=== PATIENT | female | born 1935 | race Caucasian/White ===

== ENCOUNTER 2016-08-11 08:13 | Inpatient (IN) | payer MEDICARE, OTHER ==
[~2016-08-11] VITALS: Ht 170.2 cm; Wt 68.1 kg
--- NOTE | ~2016-08-11 | ECH ---
Transesophageal Echocardiography Report (ESTHER) Demographics Patient Name RICCO ZHU Date of Study 08/12/2016 Patient Number [id number] Visit Number [id number] Date of 1935 Room Number 401 Accession Number [id number] Gender Female Age 80 year(s) Referring Laxmi HERNANDEZ Employee Health Rn Silva Lala Physician Frank Gupta MD Physician Interpreting Laxmi HERNANDEZ Waste Water Worker Physician Frank Supervising Ordering Physician Laxmi HERNANDEZ MD/GAIL Marie Nurse Stress News Library Director Conclusions Contractility Score Summary Normal Left Ventricular contractility was noted. Summary Informed consent obtained. Transesophageal echocardiogram was done under moderate sedation . The estimated left ventricular ejection fraction is 55-60%. There is no thrombus in the left atrial appendage. Bubble study was done, there is no evidence for a PFO or ASD. Mild mitral regurgitation by color Doppler. Trivial tricuspid regurgitation by color Doppler. Mild atherosclerosis noted. Recommendation The patient was given the results of the exam during their hospital stay. Procedure Type of Study ESTHER procedure Procedure Date Date: 08/12/2016 Start: 09:50 AM Technical Quality: Adequate visualization Indications:Atrial fibrillation. Appropriate Use Criteria: 9 Height: 67 inches Weight: 150 pounds BSA: 1.79 m Rhythm: Atrial fibrillation HR: 145 bpm BP: 111/57 mmHg O2 Saturation: 92 % ESTHER Performed By: Frank Hair MD Type of Anesthesia: Moderate sedation Findings Left Ventricle Normal interventricular septum. Left Atrium There is no thrombus in the left atrial appendage. Informed consent was obtained, bubble study was done, there is no evidence for a PFO or ASD. Mitral Valve Normal mitral valve structure and function. Mild mitral regurgitation by color Doppler. Aortic Valve The aortic valve is mildly sclerotic. Tricuspid Valve Normal tricuspid valve structure and function. Trivial tricuspid regurgitation by color Doppler. Pulmonic Valve Normal pulmonic valve structure and function. Miscellaneous Mild atherosclerosis noted. Contractility Score LV regional wall motion:(0-Non visualized 1-Normal 2-Hypokinesis 3-Akinesis 4-Dyskinesis 5-Aneurysm) Signature
--- NOTE | 2016-08-13 12:41 | CVR ---
ADMIT: 08/11/2016 RM/LOC: 401 [facility] MR#: [id number] [address] [address] YAMILA ZHU [address] [place] [address] Cardioversion Report SEX: F AGE: 80 : 1935 DATE: 08/12/2016 INDICATION: Yamila is a pleasant 80-year-old female, who presented with atrial fibrillation with rapid ventricular response. This was her 1st episode, and given her symptoms we discussed risks and benefits, and she decided to proceed with ESTHER cardioversion. PROCEDURE PERFORMED: 1. Direct current cardioversion. 2. Transesophageal echo reported separately. PROCEDURE IN DETAIL: After the ESTHER was completed, the patient was already sedated with propofol from Anesthesia. She received a single 120 joule biphasic synchronized shock converting her from atrial fib to a normal sinus rhythm. She tolerated the procedure well and there were no complications. SUMMARY: Successful cardioversion from atrial fib to normal sinus rhythm. Frank Hair MD/ fozia JOB #: [id number] CC: Mihir Dumont, Attending Physician Mihir Dumont, Family Physician
[2016-08-17] MEDS ORDERED: FENOFIBRIC ACI135 MG PO (06:42)
[2016-08-17] MEDS ORDERED: VALIUM-DPS5 MG PO (06:42)
[2016-08-17] MEDS ORDERED: SYNTHROID DPS0.1 MG PO (06:43)
[2016-08-17] MEDS ORDERED: LOPRESSOR DPS12.5 MG PO (06:43)
[2016-08-17] MEDS ORDERED: LASIX DPS40 MG PO (06:43)
[2016-08-17] MEDS ORDERED: TYLENOL325 MG PO (06:44)
[2016-08-17] MEDS ORDERED: SPIRONOLACTONE25 MG PO (06:44)
[2016-08-17] MEDS ORDERED: ASA CHILDREN'S81 MG PO (06:44)
[2016-08-17] MEDS ORDERED: CORDARONE DPS200 MG PO ×2 (06:45→06:50)
[2016-08-17] MEDS ORDERED: B-12 INJ1000 MCG/M PO (06:46)
[2016-08-17] MEDS ORDERED: GLYBURIDE5 MG PO ×2 (06:46→06:47)
[2016-08-17] MEDS ORDERED: DULERA 200/58.8 GM IH (06:47)
[2016-08-17] MEDS ORDERED: JANUVIA50 MG PO (06:47)
[2016-08-17] MEDS ORDERED: SURFAK DPS240 MG PO (06:48)
[2016-08-17] MEDS ORDERED: MAALOX DPS30 ML PO (06:48)
[2016-08-17] MEDS ORDERED: ELIQUIS2.5 MG PO (06:49)
--- NOTE | 2016-08-21 12:04 | HP ---
ADMIT: 08/11/2016 RM/LOC: 401 [facility] MR#: [id number] [id number] [place], [place] [address] YAMILA ZHU [address] [place] [address] History and Physical SEX: F AGE: 80 : 1935 DATE OF SERVICE: CHIEF COMPLAINT: Chest pain. HISTORY OF PRESENT ILLNESS: Yamila is an 80-year-old white female, well known to myself, admitted to [facility] through the ER with chest pain, rule out AK evaluation. States she woke up this morning and had some epigastric pain that radiates through to her back, just like with her prior heart attack years ago. She subsequently activated EMS, was taken to the ER. Initial EKGs and enzymes show no evidence of acute AK but she did indeed have new onset atrial fibrillation with rapid ventricular response, which responded nicely to IV beta-travis for rate control. I was subsequently contacted for admission for further evaluation and management, given her history of known coronary artery disease, diabetes, hypertension, etc. Yamila states at this point in time, her pain is gone. She denies it was ever chest pain, states it was all in her upper abdomen, went straight through to her back to slide with her prior heart attack. 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 She denies any current chest pain, shortness of breath, nausea, or vomiting. PAST MEDICAL HISTORY: Well documented in charts and includes numerous prior surgeries including bypass surgery, hysterectomy, cholecystectomy, melanoma excision. Illnesses include coronary artery disease, status post AK x2 with her last stent being in 2005. Additionally, she has hypertension, diabetes mellitus type 2, hyperlipidemia, hypertriglyceridemia, hypothyroidism secondary to thyroid ablation, hypothyroidism, prior melanoma excision, prior low back spine surgery along with history of chronic anxiety disorder, diverticulosis, osteoarthritis, peptic ulcer disease, and prior hemorrhoidectomies. MEDICATIONS: Yet to be confirmed and include: 1. Aspirin enteric coated 81 mg daily. 2. Valium 5 mg t.i.d. p.r.n. anxiety. 3. Fenofibrate 135 mg once daily. 4. Lasix 40 mg every morning. 5. Metformin 500. 6. Glyburide 5 two in the morning and one at night. 7. Levothyroxine 100 mcg daily. 8. Metoprolol tartrate 50 mg b.i.d. 9. Pravastatin 40 mg at bedtime. 10.Ramipril 10 mg b.i.d. ALLERGIES: TO PENICILLIN. SOCIAL HISTORY: An 80-year-old white female. She lives in [place]. She is a prior smoker, quit around 2005. She does not drink alcohol. FAMILY HISTORY: Heart disease. No history of anesthetic complications, ADMIT: 08/11/2016 RM/LOC: 401 [facility] MR#: [id number] [address] [place] [id number] YAMILA ZHU [address] [place] [address] History and Physical SEX: F AGE: 80 : 1935 noted. Remainder of family history is unremarkable. REVIEW OF SYSTEMS: Remarkable for some chronic back pain and leg weakness with the use of wheeled walker. She has known coronary artery disease and chest pain and chronic anxiety which is reasonably well controlled on her current medications. Remainder of review of systems is negative. PHYSICAL EXAMINATION: VITAL SIGNS: She is alert and oriented, in no acute distress. Her biggest concern is she has not had breakfast or lunch. GENERAL: Exam shows her to be alert. HEENT: Pupils reactive. Extraocular muscles are intact. TMs normal. Throat is unremarkable. HEART: Borderline tachycardic. LUNGS: Clear. ABDOMEN: Soft, nontender, and benign. BREASTS: Deferred. : Deferred. RECTAL: Deferred. EXTREMITIES: Reveal no clubbing, cyanosis, or edema. NEUROLOGIC: Grossly normal including light touch, strength, and DTRs, although she has diminished strength in her legs. LABORATORY DATA: Include sodium of 140, potassium 3.9, BUN of 34, creatinine 1.8 with glucose of 186. Initial cardiac enzymes including CPK, MB, and troponin I are normal. TSH is 0.81. White count is 6.6, hemoglobin 10.7, platelet count 339,000. Chest x-ray done in the ER shows no acute changes per preliminary report. Some mild cardiomegaly was noted. EKG done in the ER shows atrial fibrillation with rapid ventricular response with current rate control. Tele monitors and vitals are currently being utilized via 4 personnel during cardiology conversations. ASSESSMENT: 1. Chest pain, rule out myocardial infarction with known coronary artery disease. ADMIT: 08/11/2016 RM/LOC: 401 [facility] MR#: [id number] [address] [place] [id number] YAMILA ZHU [address] [place] [address] History and Physical SEX: F AGE: 80 : 1935 2. New onset atrial fibrillation with rapid ventricular response with current rate control following fluids and IV beta travis. Other problems include chronic kidney disease versus prerenal azotemia with elevated creatinine. Anemia with hemoglobin of 10.7. Other problems include diabetes mellitus type 2, hypothyroidism, COPD, hyperlipidemia hypertension, lumbosacral spine disease. PLAN: Routine labs have been ordered. Serial cardiac enzymes and fasting lipids were ordered. Cardiology has been consulted. For rate control, we will initiate IV heparin, given her new onset atrial fibrillation, proceed with further evaluation and management based on course during hospitalization. Please see her hospital record for the details. Mihir Dumont MD/ wilmar JOB #: [id number] CC: Mihir Dumont, Attending Physician Mihir Dumont, Family Physician
--- NOTE | 2016-08-23 11:23 | CO ---
ADMIT: 08/11/2016 RM/LOC: 401 [facility] MR#: [id number] [address] [place], [place] [address] YAMILA ZHU [address] [place], [place] [address] Consultation SEX: F AGE: 80 : 1935 DATE OF CONSULTATION: 08/11/2016 ATTENDING PHYSICIAN: Mihir Dumont CONSULTING PHYSICIAN: Segun Laughlin MD REASON FOR CONSULT: Chest pain and newly diagnosed atrial fibrillation. HISTORY OF PRESENT ILLNESS: Yamila is a very nice, 80-year-old lady with known coronary disease. She had an anterior myocardial infarction in 2005, treated with percutaneous coronary intervention, but I am not sure what kind of stent she received. Her LV function has been preserved. She did have an episode of possible diastolic heart failure in 2012. She is diabetic with COPD and history of hypothyroidism and hypertension. She says for the past 6 months and steadily becoming more progressive she has had episodes of waking up in the morning, slightly diaphoretic, feeling weak, and she said the best way to describe it as feeling like her blood sugar was low. This has been getting worse over time, and she usually gets up and has a bite to eat and then is able to go back to bed. However this morning, she had a similar episode. She said she got up and had a couple grapes and a small cookie. It was about 6:30 in the morning. She then began having a dull abdominal pain radiating into her back. She described it as moderate in intensity and described it like a "gallbladder attack." She was lightheaded and weak, but she did not pass out. She went to her front door and unlocked it in case the emergency medical crew would have to go in. She sat down in her recliner. She continued to feel poorly, so she called the EMS. She was brought to the emergency room. She was found to be in atrial fibrillation with rapid ventricular response. Her initial troponin is minimally elevated and slowly her pain resolved. She also has been feeling some palpitations over the past few weeks, but this is not one of her main symptoms. She denies any anginal-type symptoms at least chest pain in her chest. Most of her pain today in her upper abdomen. On presentation, she was in rapid ventricular response with a heart rate 120 to 140. PAST MEDICAL HISTORY: ALLERGIES: Penicillin. HOME MEDICATIONS: Include: 1. Diazepam 5 mg 3 times a day as needed. 2. Lasix 40 every morning. 3. Fenofibric acid 135 daily. 4. Glyburide/metformin 5/500 two tabs every morning and one tab in the evening. 5. Levothyroxine 100 mcg daily. 6. Metoprolol 50 b.i.d. 7. Ramipril 10 twice daily. 8. Spironolactone 25 daily. 9. Aspirin 81 daily. 10.Tylenol 325 as needed. ADMIT: 08/11/2016 RM/LOC: 401 [facility] MR#: [id number] [address] [address] YAMILA ZHU [address] [place] [address] Consultation SEX: F AGE: 80 : 1935 ILLNESSES: Include: 1. Coronary disease after having an anterior myocardial infarction in 2005, treated with percutaneous coronary intervention. 2. History of heart failure with preserved ejection fraction. 3. Dyslipidemia. 4. Type 2 diabetes. 5. Severe COPD. 6. Hypothyroidism. 7. Hypertension. PAST SURGICAL HISTORY: Includes cataract removal, hysterectomy, cholecystectomy, and benign left breast biopsy. She had melanoma on her back when she was in her 30s and skin graft, and she has had hemorrhoid surgery. FAMILY HISTORY: Positive for premature coronary disease with her father having an HI at age 61. Her mom had an HI at age 68 and 2 other brothers who either had bypass surgery or HI. She has 1 brother and 2 sisters with diabetes. No significant family history of cancer or stroke. SOCIAL HISTORY: She quit smoking in 2005. She has been for quite a few years. She has 2 sons. 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 She tries to follow a low sugar diet. She drinks coffee daily. No alcohol or illicit drug use. REVIEW OF SYSTEMS: GENERAL: Denies fatigue, fever, chills, sweats, rash, or weight loss. EYES: Positive for blurry vision, partial vision loss, wears glasses and positive for cataracts. Denies double vision or glaucoma. ENT: Denies hearing loss or problems with nose, mouth or throat. PULMONARY: Positive for history of emphysema, and she wakes more than once a night. Denies cough, sputum production, asthma, or bronchitis. Denies snoring loudly or fatigue upon awakening. GASTROINTESTINAL: Positive for distant history of a stomach ulcer, and she has had a prior cholecystectomy. Denies heartburn or difficulty swallowing. No change in bowel habits. Denies dark or bloody stools. No history of hiatal hernia or liver disease. GENITOURINARY: Denies dysuria, hematuria, nocturia, urinary tract infection, or kidney stones. Denies history of renal insufficiency or failure. MUSCULOSKELETAL: Positive for muscle and joint pains. Denies history of arthritis or gout. ENDOCRINE: Positive for hypothyroidism, and it sounds like she may have had a thyroid ablation in the past. Denies history of diabetes. HEMATOLOGIC: Positive for a history of anemia and melanoma when she was young woman. Denies history of easy bruising or cancer. NEUROLOGIC: Denies chronic headaches, dizziness, syncope, stroke, seizures or numbness or tingling. PSYCHIATRIC: Denies history of mental illness or feelings of depression. ADMIT: 08/11/2016 RM/LOC: 401 [facility] MR#: [id number] [address] [address] YAMILA ZHU [address] [place] [address] Consultation SEX: F AGE: 80 : 1935 PHYSICAL EXAMINATION: VITAL SIGNS: Blood pressure is 110/64, pulse is in the 130s, she is afebrile, respirations 16, and O2 sats are 98% on supplemental oxygen. GENERAL: She is alert and oriented. She is in good humor. She does not appear in any acute distress. EYES: Sclerae clear. No xanthelasmas. ENT: There is questionable soft right-sided carotid bruit, but no significant JVD. CHEST: Mild kyphosis. Respirations are even and unlabored. Lungs are clear to auscultation. There are a few transmitted upper airway sounds, but no dullness to percussion or specific areas of rhonchi or crackles. HEART: Irregularly irregular, tachycardic. I do not hear any significant murmurs, rubs, or gallops. There are no lifts. ABDOMEN: There is a large surgical scar and a small ventral wall abnormality, but nontender. Bowel sounds are active. No masses appreciated. EXTREMITIES: No edema. Distal pulses intact. MUSCULOSKELETAL: Gait is normal. PSYCHIATRIC: Alert and oriented. Mood and affect are appropriate. DIAGNOSTIC DATA: A 12-lead EKG shows atrial fibrillation with rapid ventricular response and nonspecific ST changes. LABORATORY DATA: Sodium 140, potassium 3.9, BUN 34, creatinine 1.8, glucose is 186, calcium is 8.4, CK is 45, troponin is 0.023, free T4 is 1.49 with a TSH of 0.818. INR is normal. Glucose is 136. White count is 6.6, hemoglobin is 10.7, and platelet count 339,000. Chest x-ray shows mild cardiomegaly, but no significant pulmonary vascular congestion. IMPRESSION: 1. Newly diagnosed atrial fibrillation with rapid ventricular response. 2. History of coronary disease and anterior myocardial infarction in 2005. 3. Type 2 diabetes. 4. Dyslipidemia. 5. History of heart failure with preserved ejection fraction dating back to 2002. 6. Chronic obstructive pulmonary disease. 7. Atypical chest pain. 8. Chronic anemia. RECOMMENDATIONS: Based on her symptoms, I think she may have had atrial fibrillation at least for the past several weeks and could have gone unrecognized by the patient. I think she is asymptomatic with some weakness. Her pain was atypical for angina although it was similar in quality. It was certainly a different location than what she has had with her previous HI. My overall suspicion of an acute coronary syndrome is low, but we will continue ADMIT: 08/11/2016 RM/LOC: 401 [facility] MR#: [id number] [address] [place], [place] [address] YAMILA ZHU [address] [facility] [address] [place] [address] Consultation SEX: F AGE: 80 : 1935 the rule out process. Her atrial fibrillation is a new diagnosis. I suspect the etiology is her multiple risk factors and age. Her thyroid function looks okay, and I see no evidence of other obvious etiology. We will continue with rate control for now. If she does not spontaneously convert to sinus rhythm, we will consider a transesophageal echo and potential cardioversion. She will be committed to anticoagulation at least for the immediate future. Depending on her clinical course, we will decide about adding antiarrhythmic. I think sotalol would probably be appropriate choice given her history. She does have some mild anemia, but is chronic and I think she will tolerate anticoagulation. She is on heparin for now until she rules out for acute coronary syndrome. We may also have to consider another ischemic evaluation in the future. Segun Laughlin MD/ wilmar JOB #: [id number] CC: Mihir Dumont, Attending Physician Mihir Dumont, Family Physician
--- NOTE | 2016-09-10 08:03 | ER ---
ADMIT: 08/11/2016 RM/LOC: 401 [facility] MR#: [id number] [address] [place], [place] [address] RICCO ZHU [address] [place] [address] Emergency Room Report SEX: F AGE: 80 : 1935 DATE: 08/11/2016 This 80-year-old female comes to the Emergency Department with complaints of 2 hours worth of chest discomfort, sudden onset and constant. She states by the time of her arrival in the Emergency Department, it was somewhat improved. She also complains of dizziness and weakness associated with it. It started while she was at rest. There were no other associated symptoms with it, was not exacerbated by anything in particular. PAST MEDICAL HISTORY: Significant for myocardial infarction, diabetes, and hypertension. PHYSICAL EXAMINATION: GENERAL: Reveals an elderly female in mild amount of distress. She is anxious appearing. HEENT: Normocephalic. LUNGS: Clear to auscultation bilaterally. CARDIOVASCULAR: Irregular rate, irregular rhythm. Tachycardic. No gallops or friction rub. ABDOMEN: Benign. SKIN: Unremarkable. MAKEUP INSTRUCTOR: No focal findings. Cardiac workup was initiated. EKG showed atrial fibrillation with rapid ventricular response. CBC was significant for hemoglobin of 10.7. Chemistry had a BUN of 34 and creatinine 1.8. Cardiac markers were within normal parameters. The patient was being admitted for atrial fibrillation, RVR. She was given fluids in the Emergency Department IV and metoprolol IV and aspirin. TSH was also obtained. ADMISSION DIAGNOSIS: Atrial fibrillation RVR. Arben Burrell MD/ wilmar JOB #: [id number] CC: Mihir Dumont MD, Attending Physician Mihir Dumont MD, Family Physician
[2016-09-21] MEDS ORDERED: DUONEB DPS3 ML IH (13:51)
[2016-09-21] MEDS ORDERED: NITROSTAT0.4 MG SL (13:51)
[2016-09-21] MEDS ORDERED: MIRALAX PACKET17 GM PO (13:53)
--- NOTE | 2016-10-02 15:25 | DS ---
ADMIT: 08/11/2016 RM/LOC: 401 [facility] MR#: [id number] [address] [facility] [address] [place], [place] [address] YAMILA ZHU [address] [place] [address] General Discharge Summary SEX: F AGE: 80 : 1935 ADMISSION DATE: 08/11/2016 DISCHARGE DATE: 08/16/2016 INDICATION FOR HOSPITALIZATION: Yamila is an 80-year-old white female, well known to myself admitted to [place] through the ER with chest pain rule out CA evaluation on August 11. Please see admission H and P for the details regarding her history of present illness, past medical history, physical exam, and assessment at time of hospitalization. HOSPITAL COURSE: On admission, her metformin was held. She was placed on diabetic diet. Accu-Chek monitoring and sliding scale were ordered. She was placed on the heparin protocol and Accu-Chek monitoring. Routine labs, electrolytes, and home medications were reviewed and ordered. [facility] consult was requested. An echocardiogram was ordered. Fasting lipids were ordered. Her glyburide and metformin were held on the . Cardiology saw the patient on the , and ultimately, the patient was started on Cardizem drip for rate control of her atrial fib. Altace and TriCor were held on the with elevated troponins noted. Her new onset atrial fibrillation with rapid ventricular response was managed by Cardiology. Some renal impairment was noted. By , her heparin drip was discontinued. Eliquis therapy was initiated. Cardizem was discontinued, and she was placed on amiodarone. Vitamin B12 therapy was initiated on August 13. Her aspirin was discontinued by Cardiology. Lexiscan was scheduled to [facility], and arrangements for discharge to home were made. V/Q scan was ordered on the , and by the , her vital signs were stable, she was afebrile. Hemoglobin A1c was 6.5. V/Q scan was done later that day. Renal ultrasound with elevated creatinine was obtained. She was started on Advair and was discharged to home on the . Arrangements for home health care, home oxygen, and a lifeline were made. Please include a copy of her discharge med list at this point. Schedule followup with Dr. Dumont was arranged the following week. She was to resume glyburide 5 mg 2 in the morning, 1 in the afternoon, Januvia 100 mg daily and initiate Advair 50/250 one inhalation b.i.d. Follow up with BMP, hemoglobin, iron, retic count, and chest x-ray. LABORATORY AND X-RAY DATA: Include on August 16; white count 7.2, hemoglobin 8.9, and platelet count 299,000. On August 11; white count of 6.6, hemoglobin 10.7 with a platelet count of 339,000. INR on August 11 was 1.1. On August 12; UA is normal. On August 15; sodium 139, potassium 4.4, BUN 50, creatinine 2.2 with glucose 151. On August 11; sodium 140, potassium 3.9, BUN 34, creatinine 1.8 with glucose 186, magnesium 2.1, iron 75, CPKs were 59, 50, and 45 with MBs of 3.8, 3.4, and 1.2, troponin Is were 0.636, 0.347, and 0.023 consistent with elevated cardiac enzymes. Sugars were monitored during hospitalization. B12 was low at 184. Hemoglobin A1c is 6.5. TSH was normal 0.818 with a free T4 of 1.49. V/Q scan shows low probability PE on August 15. Chest x-ray on August 11 shows cardiomegaly, mild. Renal ultrasound shows right renal cyst on August 15. DC cardioversion on August 11, EKG shows atrial fibrillation with rapid ADMIT: 08/11/2016 RM/LOC: 401 [facility] MR#: [id number] [address] [facility] [address] [place], [place] [address] YAMILA ZHU [address] [place] [address] General Discharge Summary SEX: F AGE: 80 : 1935 ventricular response on August 11. On August 12; EKG shows normal sinus rhythm. Echocardiogram on August 12, shows ejection fraction of 55% to 60%. Negative bubble study. Trivial tricuspid regurg. FINAL DISCHARGE DIAGNOSES: Include: 1. New onset atrial fibrillation with demand ischemia on rapid ventricular response. 2. Chronic kidney disease with acute exacerbation. 3. Known coronary artery disease. 4. Benign essential hypertension. 5. Diabetes mellitus, type 2. 6. Hyperlipidemia. 7. Hypertriglyceridemia. 8. Hypothyroidism status post thyroid ablation. 9. Prior melanoma. PROCEDURES: Include DC cardioversion, medical management of atrial fibrillation, initiation of heparin with change to oral anticoagulation therapy, initiation of amiodarone therapy, fluid and electrolyte management of chronic kidney disease. Please see her hospital record for the details. Mihir Dumont MD/ wilmar JOB #: [id number] CC: Mihir Dumont MD, Attending Physician Mihir Dumont MD, Family Physician
[2016-10-27] MEDS ORDERED: COLACE-DPS100 MG PO (13:53)
[2016-10-27] MEDS ORDERED: TYLENOL DPS325 MG PO (13:53)
== END 2016-08-16 14:25 | disposition home health service (06) | DRG 309 ==
LOC: ER 08:13 → 4PCU 10:00
PROVIDERS: ADMIT Family Medicine
PROC: 5A2204Z Restoration of Cardiac Rhythm, Single (ICD-10-PCS; principal; 2016-08-12)
DX: I48.91 Unspecified atrial fibrillation (principal); I50.32 Chronic diastolic (congestive) heart failure; N17.9 Acute kidney failure, unspecified; E11.22 Type 2 diabetes mellitus with diabetic chronic kidney disease; I13.0 Hypertensive heart and chronic kidney disease with heart failure and stage 1 through stage 4 chronic kidney disease, or unspecified chronic kidney disease; J44.1 Chronic obstructive pulmonary disease with (acute) exacerbation; R07.89 Other chest pain; I25.10 Atherosclerotic heart disease of native coronary artery without angina pectoris; R09.02 Hypoxemia; N18.9 Chronic kidney disease, unspecified; E78.5 Hyperlipidemia, unspecified; E53.8 Deficiency of other specified B group vitamins; I51.7 Cardiomegaly; D63.8 Anemia in other chronic diseases classified elsewhere; E78.1 Pure hyperglyceridemia; E03.9 Hypothyroidism, unspecified; M48.9 Spondylopathy, unspecified; F41.9 Anxiety disorder, unspecified; K57.90 Diverticulosis of intestine, part unspecified, without perforation or abscess without bleeding; M19.90 Unspecified osteoarthritis, unspecified site; I25.2 Old myocardial infarction; Z87.11 Personal history of peptic ulcer disease; Z79.82 Long term (current) use of aspirin; Z79.84 Long term (current) use of oral hypoglycemic drugs; Z87.891 Personal history of nicotine dependence; Z95.1 Presence of aortocoronary bypass graft; Z85.828 Personal history of other malignant neoplasm of skin; Z95.5 Presence of coronary angioplasty implant and graft; Z82.49 Family history of ischemic heart disease and other diseases of the circulatory system

== ENCOUNTER 2016-09-14 11:04 | Inpatient (IN) | payer MEDICARE, OTHER ==
[~2016-09-14] VITALS: Ht 170.2 cm; Wt 68.8 kg
--- NOTE | ~2016-09-14 | ECH ---
Transthoracic Echocardiography Report (TTE) Demographics Patient Name RICCO ZHU Date of Study 09/15/2016 Patient Number [id number] Visit Number [id number] Date of 1935 Room Number 422 Accession Number [id number] Gender Female Age 80 year(s) Referring Truman Marley Drop Wire Builder Silva Lala [facility] Physician MD Tim Gupta MD Physician Interpreting Truman Marley Curtain Stretcher Assembler Physician Supervising Ordering Physician Truman Marley MD/GAIL HERNANDEZ Nurse Stress Chief Payroll Clerk Conclusions Summary Technically good exam. The estimated left ventricular ejection fraction is 60%. The left ventricle is mildly dilated . Mild concentric left ventricular hypertrophy. Restrictive filling pattern. The left atrium is mildly dilated by LA volume index measurement. There is mild-moderate aortic regurgitation by color Doppler. Mild tricuspid regurgitation by color Doppler. There is moderate pulmonary hypertension. The pulmonary pressure (RVSP) is 55 mmHg. Procedure Type of Study TTE procedure:Echo Complete SF. Procedure Date Date: 09/15/2016 Start: 11:49 AM Technical Quality: Good visualization Indications:Shortness of breath, Congestive heart failure, Diabetes, Elevated Troponin and History of CABG. Appropriate Use Criteria: 9 Height: 67 inches Weight: 147 pounds BSA: 1.77 m Rhythm: Sinus bradycardia HR: 47 bpm BP: 112/43 mmHg M-Mode/2D Measurements LV Diastolic Dimension: 5.62 cm LV Systolic Dimension: 3.04 cm LV Septum Diastolic: 0.98 cm LV PW Diastolic: 0.91 cm AO Root Dimension: 2.7 cm Cardiac Output: 3.87 l/min LA Dimension: 4.54 cm Cardiac Index: 2.19 l/min*m RV Diastolic Dimension: 4.25 cm LA volume index: 37 ml/m LVOT: 2 cm LVOT VTI: 26.2 cm RV Base: 3.2 cm LV Stroke volume: 82.27 ml RV Mid: 1.9 cm LV Stroke volume index: 46.48 ml/m TAPSE: 1.7 cm TDI-S': 9 cm/s Doppler Measurements AV Peak Velocity: 2.3 m/s MV Peak E-Wave: 1.2 m/s AV Peak Gradient: 21.16 mmHg MV Peak A-Wave: 0.42 m/s AV Mean Gradient: 11.52 mmHg MV E/A Ratio: 2.86 LVOT Peak Velocity: 0.85 m/s MV P1/2t: 45.3 msec AV Area (Continuity):1.29 cm AV P1/2t: 502.3 msec MV Deceleration Time: 156.2 msec TR Velocity:3.6 m/s MV Area (PHT): 4.86 cm TR Gradient:51.84 mmHg PV Peak Velocity: 0.71 m/s Estimated RAP:3 mmHg PV Peak Gradient: 2.02 mmHg Estimated RVSP: 55 mmHg Estimated PASP: 54.84 mmHg E' Lateral Velocity: 0.06 m/s RA Area: 17.05 cm Findings Left Ventricle The left ventricle is mildly dilated . Mild concentric left ventricular hypertrophy. Diastolic function indeterminate due to patient's arrhythmia. Right Ventricle Normal right ventricle structure and function. Left Atrium The left atrium is mildly dilated by LA volume index measurement. Right Atrium Normal right atrial size. Mitral Valve Normal mitral valve structure and function. Mild mitral regurgitation by color Doppler. Aortic Valve The aortic valve is moderately sclerotic. There is mild-moderate aortic regurgitation by color Doppler. Tricuspid Valve Normal tricuspid valve structure and function. Mild tricuspid regurgitation by color Doppler. There is moderate pulmonary hypertension. The pulmonary pressure (RVSP) is 55 mmHg. Pulmonic Valve Normal pulmonic valve structure and function. Trivial pulmonic valve regurgitation by color Doppler. Pericardial Effusion No evidence of pericardial effusion. Miscellaneous Visualized portions of the aortic root and ascending aorta appear normal in size. Pleural Effusion No evidence of pleural effusion. Contractility Score LV regional wall motion:(0-Non visualized 1-Normal 2-Hypokinesis 3-Akinesis 4-Dyskinesis 5-Aneurysm) Signature
[~2016-09-14 11:04] MED LIST: ASA CHILDREN'S81 MG PO; B-12 INJ1000 MCG/M PO; CORDARONE DPS200 MG PO; DULERA 200/58.8 GM IH; ELIQUIS2.5 MG PO; FENOFIBRIC ACI135 MG PO; GLYBURIDE5 MG PO; JANUVIA50 MG PO; LASIX DPS40 MG PO; LOPRESSOR DPS12.5 MG PO; MAALOX DPS30 ML PO; SPIRONOLACTONE25 MG PO; SURFAK DPS240 MG PO; SYNTHROID DPS0.1 MG PO; TYLENOL325 MG PO; VALIUM-DPS5 MG PO
--- NOTE | 2016-09-16 16:04 | CO ---
ADMIT: 09/14/2016 RM/LOC: 422 [facility] MR#: [id number] 2620 [facility] [address] [place], [place] [address] RICCO ZAVALA [address] [place] [address] Consultation SEX: F AGE: 80 : 1935 DATE OF CONSULTATION: 09/15/2016 ATTENDING PHYSICIAN: Mihir Dumont CONSULTING PHYSICIAN: Fernanda Holden MD REASON FOR CONSULTATION: Chronic kidney disease. HISTORY OF PRESENT ILLNESS: Ms. Zavala is an 80-year-old female, who was admitted to the hospital with dyspnea as well as hypoxia. She was admitted to the hospital in July with atrial fibrillation. It sounds like she had rate and rhythm control and she actually reverted to sinus rhythm. She reports having an outpatient stress test that was negative. She reports dyspnea that had been gradually worsening and had got back to a point that she sought care through the emergency room and was admitted for further management. She had been evaluated by Cardiology. She has a history of diastolic heart failure with mild mitral regurgitation. She was put on Lasix 40 mg IV b.i.d. She has diuresed almost a liter since admission. Her dyspneic symptoms are not any better. She denies any lower extremity edema or fluid retention otherwise. She denies any dizziness. She reports that she gets short of breath when she sleeps at night. She does state that this dyspnea gets better when she sits up, consistent with some orthopnea. Denies any PND. She was noted to have elevated transaminases as well, the etiology of which again is unclear. She denies any urinary complaints. She is unclear about her medications and whether she has a history of chronic kidney disease. Her creatinine in July was 1.8 that went up as high as 2.1 to 2.2. It was elevated at 2.6 yesterday and is 2.9 this morning. REVIEW OF SYSTEMS: A complete review of systems is negative in detail except as mentioned in history of present illness above. PAST MEDICAL HISTORY: 1. Hypertension. 2. Atrial fibrillation with RVR. 3. Type 2 diabetes mellitus. 4. Melanoma. 5. Hysterectomy. 6. CABG. 7. Dyslipidemia. 8. Hypothyroidism. 9. Anxiety. 10.Peptic ulcer disease. 11.Diverticulosis. ALLERGIES: PENICILLINS. SOCIAL HISTORY: . Former smoker. She used to smoke almost two packs of cigarettes a day. Has quit smoking for several years. ADMIT: 09/14/2016 RM/LOC: 422 [facility] MR#: [id number] [address] [address] RICCO ZAVALA [address] [place] [address] Consultation SEX: F AGE: 80 : 1935 FAMILY HISTORY: Denies any family history of chronic kidney disease or renal replacement therapy. PHYSICAL EXAMINATION: VITAL SIGNS: Temperature 97.2 Fahrenheit, pulse 50, blood pressure 122/43, saturating 95% on 4 L nasal cannula. GENERAL: She is sitting at the edge of the bed. She is holding on to a walker and is wearing supplemental oxygen. HEENT: Head appears nontraumatic. Extraocular movements are intact. CHEST: She has crackles all over her lung lynch, bibasilar as well as upper lung lynch posteriorly. CVS: Bradycardic. No rubs, murmurs, or gallops. ABDOMEN: Soft, nontender. EXTREMITIES: No edema. NEUROLOGIC: She is alert. Cranial nerves II through XII appear grossly normal. PSYCHIATRIC: Affect and memory is within normal limits. LABORATORY DATA: Reviewed. BMP with sodium 140, potassium 4.3, CO2 of 31, creatinine 2.9, calcium 7.9, albumin 2.7. Her AST is elevated at 539, ALT is elevated at 403. Her hemoglobin is 9.4. Her N-Terminal proBNP was elevated at 40,334. Chest x-ray showed radiologic pulmonary edema with small bilateral pleural effusions. ASSESSMENT AND PLAN: Chronic kidney disease, stage 4 - Creatinine has been running in the low 2's recently. Etiology of her chronic kidney disease is unclear. She appears to have had a small decrease in kidney function that could be related to her cardiac issues. I will check her urine studies to evaluate further. I will have her stop her fenofibrate for the time being. I will monitor her kidney function closely with diuresis. In terms of her overall presentation, I am unclear if this is a decompensated heart failure. She does not have any signs of extravascular volume expansion. She is planned for an echocardiogram to see if there has been a change in her cardiac function and status. She has imaging studies and elevated transaminases that raise the possibility of amiodarone toxicity, and I will continue to discuss her case with Cardiology moving forward. Thank you for this interesting consultation. Please do not hesitate to contact with any questions. Fernanda Holden MD/ wilmar JOB #: [id number] CC: Mihir Dumont, Attending Physician Mihir Dumont, Family Physician
--- NOTE | 2016-09-19 07:11 | HP ---
ADMIT: 09/14/2016 RM/LOC: 422 [facility] MR#: [id number] [address] [place], [place] [address] YAMILA ZHU [address] [place] [address] History and Physical SEX: F AGE: 80 : 1935 DATE OF SERVICE: CHIEF COMPLAINT: Shortness of breath with hypoxia. HISTORY OF PRESENT ILLNESS: Yamila is an 80-year-old white female with a history of recent atrial fibrillation with rapid ventricular response, started on amiodarone with anticoagulation, who underwent DC cardioversion, who previously had her Lasix, Mobic, and ramipril stopped due to some exacerbation of chronic kidney disease. She is admitted to [facility] with CHF with pulmonary edema, cardiomegaly, and proBNP of over 40,000. Hypoxia was noted and she was given IV Lasix and admitted for further evaluation and management. She states she is breathing much better and has been diuresing well. Denies any other concerns. She denies any chest pain or shortness of breath during the interim but states she just progressively got more short of breath over the last 24-48 hours. PAST MEDICAL HISTORY: Well documented in the computer and includes a prior bypass surgery, hysterectomy, cholecystectomy, melanoma surgery, hemorrhoid surgery along with diabetes mellitus type 2, atrial fibrillation, prior rapid ventricular response, hyperlipidemia, hypothyroidism, back surgery, generalized anxiety disorder, peptic ulcer disease, diverticulosis, and degenerative arthritis. MEDICATIONS ON ADMISSION: Currently listed in her chart and include: 1. Advair 250/50 one inhalation b.i.d. 2. Aspirin 81 mg daily. 3. Amiodarone 200 mg daily. 4. Eliquis 2.5 mg b.i.d. 5. Fenofibrate 135 mg at bedtime. 6. Glyburide 10 mg morning and 5 mg 5 p.m. 7. Januvia 100 mg daily. 8. Metoprolol 25 mg b.i.d. 9. Synthroid 100 mcg daily. ALLERGIES: INCLUDE PENICILLIN. SOCIAL HISTORY: An 80-year-old white female. She does not currently smoke or drink. She is a prior smoker. She quit around 2005. FAMILY HISTORY: Includes heart disease. No anesthesia complications. REVIEW OF SYSTEMS: Remarkable for some chronic back pain, leg weakness, and uses a wheeled walker. Known coronary artery disease with chronic anxiety disorder and recent CHF. Remainder of review of systems is negative. PHYSICAL EXAMINATION: VITAL SIGNS: Include temperature 96.3, pulse 55, respiratory rate 18, blood pressure 154/61. GENERAL APPEARANCE: An 80-year-old female. She is alert, lying in hospital bed. She appears very comfortable and in no acute distress. She is wearing ADMIT: 09/14/2016 RM/LOC: 422 [facility] MR#: [id number] [address] [place] [id number] YAMILA ZHU [address] [place] [address] History and Physical SEX: F AGE: 80 : 1935 oxygen. HEENT: On exam, pupils are reactive. Extraocular muscles are intact. TMs are unremarkable. She has dentures. NECK: Without nodes or masses. HEART: Regular with a grade 2 murmur, loudest at the right 2nd intercostal space. LUNGS: Reveal trace basilar rales. No wheezing. No retractions. No accessory muscle use. ABDOMEN: Soft, nontender, benign. BREASTS: Deferred. : Deferred. RECTAL: Deferred. EXTREMITIES: Reveal no clubbing, cyanosis, or edema. NEUROLOGIC: Reveal grossly normal light touch and DTRs. LABORATORY AND X-RAY DATA: Chest x-ray shows cardiomegaly with some pulmonary edema. LABORATORY DATA: Labs include sodium 139, potassium 4.3, BUN of 47, creatinine 2.6 with glucose 174, AST is 973 with an ALT of 486. Magnesium was not done, recently was normal. CPK was 99 with an MB of 2.8, troponin I is 0.70 with a proBNP of 40,334. White count 5.5, hemoglobin 9.4, platelet count 395,000. Recent hemoglobin A1c was 6.5. UA was not done. ASSESSMENT: Acute exacerbation of heart failure with fluid overload; elevated transaminases; recent atrial fibrillation, currently in sinus with recent DC cardioversion; known coronary artery disease; chronic kidney disease; chronic anemia with diabetes; hyperlipidemia; hypothyroidism; anxiety disorder; peptic ulcer disease; diverticulosis; degenerative arthritis; and known Chronic obstructive pulmonary disease with current hypoxia. PLAN: We will initiate diuretics. Cardiology is formally consulted. We will monitor I's and O's, daily weights, and electrolytes. She is full code per patient request. [facility] have been formally consulted. Echocardiogram was ordered. We will proceed with further evaluation and management based on course during hospitalization. Mihir Dumont MD/ wilmar JOB #: [id number] CC: Mihir Dumont, Attending Physician Mihir Dumont, Family Physician
[2016-09-21] MEDS ORDERED: DUONEB DPS3 ML IH (13:51)
[2016-09-21] MEDS ORDERED: NITROSTAT0.4 MG SL (13:51)
[2016-09-21] MEDS ORDERED: MIRALAX PACKET17 GM PO (13:53)
--- NOTE | 2016-09-26 14:03 | CO ---
ADMIT: 09/14/2016 RM/LOC: 422 [facility] MR#: [id number] [address] [address] YAMILA ZHU [address] [place] [address] Consultation SEX: F AGE: 80 : 1935 DATE OF CONSULTATION: 09/14/2016 ATTENDING PHYSICIAN: Mihir Dumont CONSULTING PHYSICIAN: Segun Laughlin MD REASON FOR CONSULT: Congestive heart failure. HISTORY OF PRESENT ILLNESS: Yamila is an 80-year-old female with a recent diagnosis of atrial fibrillation with rapid ventricular response. It was during her hospitalization at the end of July. At that time, she was started on amiodarone, anticoagulation, and underwent direct current cardioversion. Post hospitalization, she underwent stress testing, which was negative for signs of ischemia. Over the last 4 to 5 days, she has noticed that she has become increasingly short of breath. She thinks it began after her Lasix was stopped last week. She does not have orthopnea, but does wake up short of breath at times. She denies any symptoms of chest pain, palpitations, or syncope. Her home health nurse saw her this morning and was concerned with her status, so she recommended that the patient present to the ER for evaluation. CARDIAC HISTORY AND RISK FACTORS: Her history is significant for coronary disease with an anterior myocardial infarction in 2005. This was treated with percutaneous coronary intervention. Her LV function has been preserved. From available records, it appears that she did have an episode of possible diastolic heart failure in 2012. She is a type 2 diabetic and has a history of high cholesterol. She also has a history of hypertension. She has a prior history of tobacco abuse for which she quit smoking in 2005. She does have a positive family history of coronary disease in her father, mother and 2 older brothers. PAST MEDICAL HISTORY: Coronary disease with anterior NM in 2006 and PCI intervention. Heart failure with preserved ejection fraction. Dyslipidemia. Type 2 diabetes. Severe COPD. Hypothyroidism. Hypertension. Chronic kidney disease. Chronic anemia. Recently diagnosed atrial fibrillation with RVR status post DCCV. PAST SURGICAL HISTORY: Prior surgeries include cataract removal, hysterectomy, cholecystectomy, and benign left breast biopsy. She had a local melanoma removed on her back when she was in her 30s with skin graft. Prior hemorrhoid surgery. ALLERGIES: SHE IS ALLERGIC TO PENICILLIN. CURRENT MEDICATIONS: 1. NovoLog sliding scale. 2. Lasix 20 mg IV given in the ER. HOME MEDICATIONS: ADMIT: 09/14/2016 RM/LOC: 422 [facility] MR#: [id number] [address] [address] YAMILA ZHU [address] [place] [address] Consultation SEX: F AGE: 80 : 1935 1. Advair Diskus. 2. Aspirin 81 mg daily. 3. Amiodarone 200 mg daily. 4. Eliquis 2.5 mg twice daily. 5. Fenofibrate 135 mg daily. 6. Glyburide. 7. Januvia. 8. Metoprolol tartrate 25 mg twice daily. 9. Synthroid 100 mcg daily. FAMILY HISTORY: Her family history is significant for premature coronary disease with her father having an NM at age 61. Her mother had an NM at age 68. She has 2 brothers, who have had NM or bypass surgery. She has additional siblings with diabetes. There is no other family history of cancer or stroke. SOCIAL HISTORY: She quit smoking in 2005. She is . 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 She drinks coffee daily, but denies alcohol or illicit drug use. She does live at home and has home health care come in and assist her. REVIEW OF SYSTEMS: GENERAL: Denies fatigue, fever, chills, sweats, rash, or weight loss. EYES: Positive for blurred vision and decreased vision. Denies double vision, cataracts, or glaucoma. ENT: Positive for rhinorrhea. Denies hearing loss or problems with nose, mouth or throat. PULMONARY: Positive for waking up frequently at night. Denies cough, sputum production, asthma, emphysema or bronchitis. Denies snoring loudly or fatigue upon awakening. GASTROINTESTINAL: Positive for distant history of stomach ulcer and prior cholecystectomy. Denies heartburn or difficulty swallowing. No change in bowel habits. Denies dark or bloody stools. No hiatal hernia, or gallbladder or liver disease. GENITOURINARY: Some problems lately with urinary retention intermittently. Denies dysuria, hematuria, nocturia, urinary tract infection, or kidney stones. Denies history of renal insufficiency or failure. MUSCULOSKELETAL: Positive for joint pains. Denies history of arthritis or gout. Denies muscle pains. ENDOCRINE: Positive for thyroid problems and diabetes. HEMATOLOGIC: Positive for anemia and prior history of melanoma. Denies history of easy bruising or cancer. NEUROLOGIC: Denies chronic headaches, dizziness, syncope, stroke, seizures or numbness or tingling. PSYCHIATRIC: Positive for depression. Denies history of mental illness. PHYSICAL EXAMINATION: VITAL SIGNS: Blood pressure 154/61, pulse 55, respirations 18, temp 96.3, and O2 saturation 98%. ADMIT: 09/14/2016 RM/LOC: 422 [facility] MR#: [id number] [address] [place] [address] YAMILA ZHU [address] [place] [address] Consultation SEX: F AGE: 80 : 1935 GENERAL: Pale appearing, alert, and cooperative. SKIN: Warm and dry. EYES: Sclerae clear. No xanthelasmas. ENT: Positive JVD. Oral mucosa is pink and moist. No carotid bruits. CHEST: Positive kyphosis and bilateral crackles. HEART: Regular with systolic murmur at the left sternal border. ABDOMEN: Protuberant, soft with normal bowel sounds. EXTREMITIES: Peripheral pulses palpable. No clubbing, cyanosis or edema. PSYCHIATRIC: Alert and oriented. Mood and affect are appropriate. DIAGNOSTIC STUDIES: Hemoglobin 9.4, creatinine 2.6, WBC 5.5, and platelets 395. Urea 47, glucose 174, AST 973, ALT 486, CK 99, MB 2.8, troponin 0.070, proBNP 40,334, TSH 2.14. Her recent cardiac stress test at [facility] was normal. Wound to the foot wound. A 48-hour Holter monitor completed recently through [facility] revealed bradycardia with rates ranging from 43 beats per minute to 73 beats per minute and an average rate of 54 beats per minute. Echocardiogram from July of 2016, revealed an ejection fraction of 55% to 60%, mild mitral regurgitation, and trivial tricuspid regurgitation. Chest x-ray performed today revealed cardiomegaly with pulmonary vascular congestion, probable small bilateral pleural effusions. IMPRESSION: 1. Heart failure with preserved ejection fraction. 2. Elevated transaminases. 3. Recent atrial fibrillation diagnosis, in sinus status post direct current cardioversion. 4. History of coronary artery disease. 5. Chronic kidney disease. ADMIT: 09/14/2016 RM/LOC: 422 [facility] MR#: [id number] [address] [place] [address] [place] [address] YAMILA ZHU [address] [place] [address] Consultation SEX: F AGE: 80 : 1935 6. Chronic anemia. 7. Diabetes. RECOMMENDATIONS: It is not clear why she has developed more fluid retention other than the Lasix recently being stopped. Her volume status is complicated by her chronic kidney disease and anemia. Her elevated transaminases are probably due to congestion, but we will have to reconsider use of amiodarone if there is no improvement. We will get an echocardiogram tomorrow, and we will proceed with IV diuresis. We will see how she responds to this. Her poor kidney function is playing a significant role in her volume retention. Thank you for allowing us to take part in the care of this patient. ILAN Salcedo Student / Segun Laughlin MD / wilmar JOB #: [id number] CC: Mihir Dumont, Attending Physician Mihir Dumont, Family Physician
--- NOTE | 2016-10-14 17:09 | ER ---
ADMIT: 09/14/2016 RM/LOC: 422 [facility] MR#: [id number] [address] [place], [place] [address] RICCO ZHU [address] [place] [address] Emergency Room Report SEX: F AGE: 80 : 1935 DATE: 09/14/2016 This 80-year-old female comes to the Emergency Department with 3-4 days worth of increasing shortness of breath. She recently just discontinued her oxygen as she had apparently been in the hospital about 4 weeks ago for cardioversion and then 2 weeks following that had echocardiogram done. They had elected to discontinue her Lasix. Several days after discontinuing the Lasix is when she has developed progressive shortness of breath. PAST MEDICAL HISTORY: Significant for congestive heart failure, renal insufficiency, recent supraventricular arrhythmia status post cardioversion. PHYSICAL EXAMINATION: GENERAL: Reveals an elderly female in [id number] amount of respiratory distress. HEENT: Normocephalic. LUNGS: Have bilateral rhonchi. CARDIOVASCULAR: Bradycardia but no murmurs, rubs, or gallops. ABDOMEN: Soft, nontender, positive bowel sounds. EXTREMITIES: Reveal no clubbing, cyanosis, or edema. LABORATORY DATA: Pertinent labs reveal a BNP of 40,334 ,chest x-ray showed vascular congestion and creatinine is 2.6 and BUN is 47. AST was 97.3, ALT 46. CBC was significant for hemoglobin 9.4. The patient is being admitted with exacerbation of congestive heart failure secondary to discontinuing diuretic and bradycardia. Arben Burrell MD/ wilmar JOB #: [id number] CC: Mihir Dumont MD, Attending Physician Mihir Dumont MD, Family Physician
--- NOTE | 2016-10-23 11:57 | DS ---
ADMIT: 09/14/2016 RM/LOC: 422 [facility] MR#: [id number] 2620 [facility] [address] [place], [place] [address] YAMILA ZHU [address] [place] [address] General Discharge Summary SEX: F AGE: 80 : 1935 ADMISSION DATE: 09/14/2016 DISCHARGE DATE: 09/20/2016 INDICATION FOR HOSPITALIZATION: Yamila is an 81-year-old white female with a history of recent atrial fibrillation with rapid ventricular response. She had been started on amiodarone anticoagulation, who underwent DC cardioversion. She had some renal problems and some prerenal azotemia. Her Lasix, Mobic, and ramipril were held. She was readmitted to [place] through the ER with CHF and pulmonary edema. Please see her admission H and P for the details regarding her history of present illness, past medical history, physical exam, and assessment at the time of hospitalization. HOSPITAL COURSE: On admission, Yamila was admitted to our residential level treatment [facility]. She was placed on telemetry. IV Lasix was ordered. Serial cardiac enzymes and EKGs were obtained. Accu-Chek monitoring and sliding scale insulin were ordered. Lasix doses were adjusted. Over the course of the next couple days, Cardiology and Nephrology evaluated her CHF. Nephrology felt that likely her CHF was a complication of her amiodarone. Continued fluid electrolyte monitoring with labs were reviewed. Attempts to wean off oxygen were unsuccessful. After discussions with Dr. Holden, felt that amiodarone was the likely source of her pulmonary edema and CHF. Continued problems with low sugars were noted. Poor oral intake was noted and her diabetes medications were decreased. By September 19, vital signs were stable, sats were 87% and 91% on room air. She had shortness of breath with any activity and was noncompliant with PT and OT. Arrangement for discharge home with oxygen were made. Ultimately, the patient was felt to be stable for discharge on September 20. Vital signs were stable on oxygen at that time. Attempts to wean her off oxygen were unsuccessful. Renal function improved. Electrolytes were stable. DISCHARGE MEDICATIONS: Medications at the time of her discharge are listed on her discharge MAR. Please include a copy of her discharge med list at this time. Schedule follow up with chest x-ray, BMP, and hemoglobin was to be made the following week with myself. We will resume her Januvia 100 mg daily, oxygen 1 L, and arrange for pulmonary rehab and balance mobility on followup on discharge. LABORATORY AND X-RAY DATA: Include September 20; hemoglobin of 9. On September 17; white count 4.6, hemoglobin 8.7, platelet count 310,000. On September 14; white count of 5.5, hemoglobin 9.4, platelet count of 395,000. On September 15; UA was normal. On September 17; sodium 137, potassium 3.8, BUN of 27, creatinine 1.9 with glucose 172. On September 17; sodium of 142, potassium 3.8 with a BUN of 43, creatinine 2.7 with glucose 34. On September 15; sodium is 140, potassium 4.3, BUN of 47, creatinine 2.9 with glucose 45. ALT of 403, AST of 539. On September 14; sodium 139, potassium 4.3, BUN 47, creatinine 2.6 with glucose 179. AST of 973, ALT of 486 with a proBNP of 40,334. Sugars were monitored. Please see her chart for details. ABGs were noted. B12 was high ADMIT: 09/14/2016 RM/LOC: 422 [facility] MR#: [id number] [address] [id number] [place], [place] [address] YAMILA ZHU [address] [place] [id number] General Discharge Summary SEX: F AGE: 80 : 1935 at 1798 on September 18. Folate was normal at 7.5. Free T4 is 1.46 on September 15 with TSH of 2.14 on September 14. Chest x-ray shows CHF with pleural effusions on September 15. Echo on September 15 shows ejection fraction of 60%. Mild concentric LVH with some [id number] atrial regurg, moderate pulmonary hypertension. FINAL DISCHARGE DIAGNOSES: Include: 1. 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 2. Atrial fibrillation status post cardioversion. 3. Chronic kidney disease. 4. Anemia of chronic disease. 5. Diabetes mellitus, type 2. 6. Hyperlipidemia. 7. Hypothyroidism. 8. Generalized anxiety disorder. 9. Peptic ulcer disease. 10.Diffuse degenerative arthritis. 11.Chronic obstructive pulmonary disease with ongoing hypoxia. 12.Diverticulosis. PROCEDURES: Include: 1. Cessation of amiodarone. 2. Diabetes management. 3. Fluid and electrolyte adjustments with diuretic therapy. Please see her hospital record for the details. Mihir Dumont MD/ wilmar JOB #: [id number] CC: Mihir Dumont MD, Attending Physician Mihir Dumont MD, Family Physician
[2016-10-27] MEDS ORDERED: TYLENOL DPS325 MG PO (13:53)
[2016-10-27] MEDS ORDERED: COLACE-DPS100 MG PO (13:53)
== END 2016-09-20 15:55 | disposition home health service (06) | DRG 291 ==
LOC: ER 11:04 → 4PCU 13:08
PROVIDERS: ADMIT Family Medicine
DX: I13.0 Hypertensive heart and chronic kidney disease with heart failure and stage 1 through stage 4 chronic kidney disease, or unspecified chronic kidney disease (principal); I50.33 Acute on chronic diastolic (congestive) heart failure; J96.21 Acute and chronic respiratory failure with hypoxia; N18.4 Chronic kidney disease, stage 4 (severe); N17.9 Acute kidney failure, unspecified; K71.6 Toxic liver disease with hepatitis, not elsewhere classified; I48.91 Unspecified atrial fibrillation; E11.649 Type 2 diabetes mellitus with hypoglycemia without coma; J44.9 Chronic obstructive pulmonary disease, unspecified; T46.2X5A Adverse effect of other antidysrhythmic drugs, initial encounter; D63.8 Anemia in other chronic diseases classified elsewhere; D53.9 Nutritional anemia, unspecified; D64.9 Anemia, unspecified; E03.9 Hypothyroidism, unspecified; I51.7 Cardiomegaly; I25.10 Atherosclerotic heart disease of native coronary artery without angina pectoris; K57.90 Diverticulosis of intestine, part unspecified, without perforation or abscess without bleeding; M19.90 Unspecified osteoarthritis, unspecified site; F41.1 Generalized anxiety disorder; H53.8 Other visual disturbances; E78.00 Pure hypercholesterolemia, unspecified; E78.5 Hyperlipidemia, unspecified; Z85.820 Personal history of malignant melanoma of skin; I25.2 Old myocardial infarction; Z87.891 Personal history of nicotine dependence; Z82.49 Family history of ischemic heart disease and other diseases of the circulatory system; Z98.61 Coronary angioplasty status; Z79.82 Long term (current) use of aspirin; Z95.1 Presence of aortocoronary bypass graft; Z87.11 Personal history of peptic ulcer disease

== ENCOUNTER 2016-10-23 11:45 | Inpatient (IN) | payer MEDICARE, OTHER ==
[~2016-10-23] VITALS: Ht 170.2 cm; Wt 69.6 kg
--- NOTE | ~2016-10-23 | CVR ---
ADMIT: 10/23/2016 RM/LOC: 427 [facility] MR#: [id number] [address] [address] AUDRARICCO [address] [place] [address] Cardioversion Report SEX: F AGE: 81 : 1935 DATE: 10/25/2016 INDICATION: Atrial fibrillation. DESCRIPTION OF PROCEDURE: Following informed consent in the patient's room, with the assistance of anesthesia, a single shock of biphasic energy was delivered in the anterior-posterior position with the pads in a synched fashion. The patient went into sinus rhythm. The patient had some respiratory distress afterwards which was assisted by anesthesia. Eventually spontaneous respirations returned. Intubation was not required but prolonged respiratory support was needed. Benitez Velez MD/ samson JOB #: [id number] CC: Mihir Dumont, Attending Physician Mihir Dumont, Family Physician
[~2016-10-23 11:45] MED LIST changes: +DUONEB DPS3 ML IH; +MIRALAX PACKET17 GM PO; +NITROSTAT0.4 MG SL
--- NOTE | 2016-10-24 10:41 | ER ---
ADMIT: 10/23/2016 RM/LOC: 427 [facility] MR#: [id number] [address] [address] AUDRA RICCO Billy [address] [place] [address] Emergency Room Report SEX: F AGE: 81 : 1935 DATE: 10/23/2016 BRIEF ADDENDUM: Please see my T-sheet for complete review of systems, past medical history, and physical exam. CHIEF COMPLAINT: Shortness of breath. HISTORY OF PRESENT ILLNESS: This is a pleasant 81-year-old female, who presents with shortness of breath for the last 6 days. The patient was recently admitted for CHF exacerbation. She was given IV diuresis as well as cardioverted for new onset atrial fibrillation. She was discharged in sinus rhythm, was started on anticoagulation with Eliquis as well as home O2 at 1.5 L/minute. She presents today with shortness of breath and increased swelling in her ankles. She is not using her Advair or DuoNeb at home for COPD. She was discharged from home health last Monday, presents today. Shortness of breath is exacerbated by exertion, lying flat, and has a nonproductive dry cough and some ankle swelling. She was initially 84% on room air on admission to the ER today. PAST MEDICAL HISTORY: AFib, CHF, diabetes, hypertension, and COPD. MEDICATIONS: She is on: 1. Eliquis. 2. Metoprolol. SOCIAL HISTORY: She is a past smoker. COURSE IN THE EMERGENCY ROOM: The patient seen and examined. Blood pressure 129/81, heart rate 87, respirations 20, temp 98.1, she was initially 84% on 1.5 L we did increase this to 3 L per nasal cannula to keep sats greater than 90. She is in no acute distress. She is alert. She does have decreased air movement in the bases, left greater than right. Crackles throughout. She does have an irregular rhythm, however, not tachycardic. No friction gallop or rub. Abdomen is soft and nontender. No distention. No evidence of any JVD. Skin is warm and dry. She does have pedal edema bilaterally 1+. She is oriented. Motor and sensation are normal. I did give her a DuoNeb in the department which helped somewhat with her breathing. EKG shows atrial fibrillation. White count 5.2, hemoglobin 8.9, hematocrit 29.8, and platelets 255. Sodium 136, potassium 4.6, BUN 45, glucose 315, creatinine 2.3. CK 35 and troponin 0.025. Her BNP was 24,678. I did phone Dr. Estrada, made him ADMIT: 10/23/2016 RM/LOC: 427 [facility] MR#: [id number] [address] [address] RICCO ZHU [address] [place] [address] Emergency Room Report SEX: F AGE: 81 : 1935 aware of this patient. The thought should be admit her to the 4th floor for further evaluation and management. IMPRESSION: 1. Congestive heart failure exacerbation. 2. Chronic obstructive pulmonary disease. 3. Left-sided pleural effusion. 4. Chronic kidney disease. 5. Atrial fibrillation DISPOSITION: Patient will be admitted by Dr. Estrada for Dr. Dumont for continued evaluation and management of her CHF exacerbation. She was discharged from floor in guarded condition. ILAN Basilio / Asaf Antunez MD / wilmar JOB #: [id number] CC: Mihir Dumont MD, Attending Physician Mihir Dumont MD, Family Physician
--- NOTE | 2016-10-25 07:07 | HP ---
ADMIT: 10/23/2016 RM/LOC: 427 [facility] MR#: [id number] [address] [address] AUDRA RICCO Billy [address] [place] [address] History and Physical SEX: F AGE: 81 : 1935 DATE OF SERVICE: 10/23/2016 CHIEF COMPLAINT: Shortness of breath and hypoxia. HISTORY OF PRESENT ILLNESS: This is a patient who was brought by her daughter to the emergency room. She has had gradual increasing shortness of breath over the last several days. Her daughter checked on her today and noted that her oxygen saturation at home was 80%, and her oxygen needs were found in the emergency room to be having increased from 1.5 to 3 L/minute. That being said, she is not having chest pain, does not feel acutely ill, maybe a slight increased cough. She has a history of atrial fibrillation for which she was cardioverted in the hospital in August, had been followed as an outpatient, recently got off home health. She was found to be back in atrial fibrillation, although her rate was under control in the emergency room. Her chest x-ray revealed large left pleural effusion larger than before, changes of congestive heart failure, so clearly she needs admission to acute care. PAST MEDICAL HISTORY: Hospitalized in August of 2016 with congestive heart failure, atrial fibrillation, and chronic kidney disease, being the top diagnoses. Last saw Dr. Dumont in the office on 09/27. Chronic medical conditions include; 1. Anemia of chronic disease. 2. Diastolic congestive heart failure. 3. Atrial fibrillation. 4. 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 5. Nonobstructive coronary artery disease. 6. Type 2 diabetes. 7. Essential hypertension. 8. Hyperlipidemia. 9. Hypothyroidism. 10.Pulmonary hypertension. 11.Vitamin B12 deficiency. PAST SURGICAL HISTORY: Include; 1. Total abdominal hysterectomy and bilateral salpingo-oophorectomy. 2. Cholecystectomy. 3. Cardiac catheterization. 4. Cataracts. 5. Left breast biopsy. 6. Melanoma removal with skin graft. 7. Hemorrhoid surgery. 8. Coronary artery stents. ALLERGIES: PENICILLIN. MEDICATIONS: 1. Advair Diskus 250/50, one puff b.i.d. 2. Aspirin 81 mg daily. ADMIT: 10/23/2016 RM/LOC: 427 [facility] MR#: [id number] [address] [address] RICCO ZHU [address] [place] [address] History and Physical SEX: F AGE: 81 : 1935 3. Eliquis 2.5 mg b.i.d. 4. Januvia 100 mg daily. 5. Metoprolol 25 mg tab, half tab b.i.d. 6. Synthroid 100 mcg daily. 7. Lasix 40 mg once a day. 8. DuoNeb q.i.d. p.r.n. PRN medications also include; 1. Maalox. 2. MiraLax. 3. Surfak. 4. Nitrostat. Vitamin B12 injection, I believe on monthly basis. SOCIAL HISTORY: She is single and lives alone. Her daughter looks after her. She is a former smoker. Does not use alcohol. FAMILY HISTORY: Positive for hypertension in first-degree relatives. Coronary artery disease in her father and her mother and sibling, also diabetes in sibling. REVIEW OF SYSTEMS: CONSTITUTIONAL: No chills or fever. ENT: No cold symptoms. EYES: No acute complaints. CV: No chest pain. RESPIRATORY: A little cough, and shortness of breath at rest. GI: Negative. No nausea, vomiting, diarrhea, or constipation. : No acute changes. SKIN: No current acute skin problems. NEURO: Negative. PSYCH: Negative. HEMATOLOGIC: No history of blood clots. No history of bleeding. PHYSICAL EXAMINATION: GENERAL: She is a pleasant elderly lady, appears her stated age. Currently appears comfortable. VITAL SIGNS: Blood eqfnuyvm359/81, pulse 87, respirations 20, temp 98, O2 saturation 83% to 84% on 1.5 L, above 90% on 3 L. Her weight is 155 which is 6 pounds heavier when she was seen by Dr. Dumont in the office on 09/27. EYES: She wears glasses. Sclerae nonicteric. Pupils are equal and reactive. ENT: Hearing is satisfactory with conversation. No nasal discharge. Oropharynx benign. She has upper and lower dentures. NECK: No masses, venous distention, or enlarged or tender thyroid. LUNGS: Decreased left base crackles on the right, harsh anteriorly. HEART: Irregular rhythm. No murmurs. ABDOMEN: Nontender. No masses. GENITALIA: Not examined. BREASTS: Not examined. EXTREMITIES: Upper extremities; no gross abnormalities. Lower extremities; minor edema in her ankles. Feet are cool to the touch. No other gross ADMIT: 10/23/2016 RM/LOC: 427 [facility] MR#: [id number] [address] [place] [phone] RICCO ZHU [address] [place] [address] History and Physical SEX: F AGE: 81 : 1935 abnormalities of the lower extremities. NEURO: Upper and lower extremities show normal strength. No obvious neurologic changes. PSYCH: She is calm. DIAGNOSTIC DATA: Her EKG shows atrial fibrillation with a rate of 80. Chest x-ray shows congestive heart failure and left pleural effusion. IMPRESSION: 1. Acute on chronic diastolic congestive heart failure with left pleural effusion. 2. Hypoxia secondary to above. 3. Chronic obstructive pulmonary disease. 4. Recurrent atrial fibrillation. 5. Chronic kidney disease, stage IV. 6. Coronary artery disease. 7. Type 2 diabetes. 8. Anemia of chronic disease. PLAN: Continue oxygen and continue bronchodilators. We have added IV Lasix. Monitor other conditions and adjust treatment as appropriate. Antolin Estrada MD/ wilmar JOB #: [id number] CC: Mihir Dumont, Attending Physician Mihir Dumont, Family Physician
[2016-10-27] MEDS ORDERED: COLACE-DPS100 MG PO (13:53)
[2016-10-27] MEDS ORDERED: TYLENOL DPS325 MG PO (13:53)
--- NOTE | 2016-11-04 11:50 | CO ---
ADMIT: 10/23/2016 RM/LOC: 427 [facility] MR#: [id number] [address] [address] YAMILA ZHU [address] [place] [address] Consultation SEX: F AGE: 81 : 1935 DATE OF CONSULTATION: 10/24/2016 ATTENDING PHYSICIAN: Mihir Dumont CONSULTING PHYSICIAN: Benitez Velez MD REASON FOR CONSULT: Diastolic heart failure. This is Jenny Damico RN, scribing for Dr. Quinton Velez. HISTORY OF PRESENT ILLNESS: Yamila is a very pleasant 81-year-old female, I have been asked to see in Cardiology consultation by Dr. Mihir Dumont for diastolic heart failure. She has history of atrial fibrillation with rapid ventricular rate in the past, which was diagnosed at the end of July during hospitalization this year. She was started on anticoagulation and amiodarone and underwent cardioversion at that time. Then, she had stress test after hospitalization in August that was negative for ischemia. She also had a 48-hour Holter monitor that did not show any evidence of atrial fibrillation as well. She was actually seen since then in the hospital at the end of August before she was able to follow up in clinic for increased shortness of breath where she had maintained sinus rhythm since that time and she was diuresed for which she responded well. Yamila presented to [facility] yesterday with complaints of increased shortness of breath and hypoxia. Her daughter brought her into the hospital when her sats on room air were in the low 80s. She denied any chest pain. Her weight was 155 pounds where it was about 4 pounds up from discharge weight a month ago. She denies any peripheral edema, but does describe orthopnea. She does have some abdominal fullness and was started on 40 mg IV Lasix to which she has responded very well. Her chest x-ray did demonstrate left moderate pleural effusion with right lower lobe atelectasis. Her proBNP was elevated 24,678. She does have history of chronic anemia and her hemoglobin is 8.9, which is stable for her. She does have chronic kidney disease stage III to IV. Her creatinine is 2.2 with a BUN of 47. She does report palpitations and she is in atrial fibrillation at this time with heart rates in the 80s to 90s. Cardiac enzymes have been negative x2. Vital signs are stable. PAST MEDICAL HISTORY: 1. Former tobacco use. 2. Hypertension. 3. Hyperlipidemia. 4. Diabetes. 5. Persistent atrial fibrillation. 6. Diastolic heart failure. 7. Macular degeneration. 8. Cataracts, status post extraction. 9. Pulmonary hypertension. 10.COPD. ADMIT: 10/23/2016 RM/LOC: 427 [facility] MR#: [id number] [address] [address] YAMILA ZHU [address] [place] [address] Consultation SEX: F AGE: 81 : 1935 11.Gastroesophageal reflux disease. 12.Gallbladder disease, status post cholecystectomy. 13.Chronic kidney disease stage III to IV. 14.Hypothyroidism. 15.Chronic anemia. PAST SURGICAL HISTORY: Includes: 1. Total abdominal hysterectomy with bilateral oophorectomy. 2. Cataract extraction. ALLERGIES: PENICILLIN. MEDICATIONS: Current medications include: 1. Aspirin 81 mg daily. 2. Eliquis 2.5 p.o. b.i.d. 3. Januvia 100 daily. 4. Lopressor 12.5 b.i.d. 5. Synthroid 100 mcg daily. 6. Dulera 200 b.i.d. 7. DuoNeb q.i.d. 8. Lasix 40 IV daily. 9. NovoLog sliding scale insulin a.c. and at bedtime. FAMILY HISTORY: Positive family history of heart disease in parents and siblings. SOCIAL HISTORY: Yamila is . 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 She drinks coffee on a regular basis. Denies any alcohol or drug use. She does have home care assistance and family assistance. She quit smoking in 2005. REVIEW OF SYSTEMS: GENERAL: Increased fatigue since Monday. Weight has fluctuated between 146 in 154 and is currently at upper ends of that. No fever, chills, or sweats. EYES: History of visual changes with macular degeneration. History of cataracts, status post extraction. Denies glaucoma. THROAT, MOUTH, AND EARS: Denies hearing loss or problems with nose, mouth or throat. RESPIRATORY: History of COPD and pulmonary hypertension. Denies any hemoptysis. GASTROINTESTINAL: History of gallbladder disease, status post cholecystectomy. History of acid reflux. Denies any trouble swallowing, hiatal hernia, or GI bleeding. GENITOURINARY: History of chronic kidney disease stage III to IV. Occasional burning with urination. No current urinary tract infections or kidney stones. MUSCULOSKELETAL: Denies history of arthritis or gout. Denies muscle or joint pains. ENDOCRINE: History of hypothyroidism and diabetes. ADMIT: 10/23/2016 RM/LOC: 427 [facility] MR#: [id number] [address] [place] [phone] YAMILA ZHU [address] [place] [address] Consultation SEX: F AGE: 81 : 1935 HEMATOLOGY: History of chronic anemia. Denies any cancer history or bleeding issues. NEUROLOGIC: Denies chronic headaches, dizziness, syncope, stroke, seizures or numbness or tingling. PSYCHIATRIC: Denies history of mental illness or feelings of depression. PHYSICAL EXAMINATION: VITAL SIGNS: Blood pressure 109/48, heart rate 85, respirations 17, temperature 97.2, oxygenation 93% on O2. SKIN: [place], warm and dry. EYES: Sclerae clear. No xanthelasmas. ENT: Oral mucosa is pink and moist. No jugular venous distention or carotid bruits. CHEST: Respirations are even and unlabored. Lungs are clear to auscultation. HEART: Irregularly irregular. No murmurs, gallops, rubs. ABDOMEN: Soft and nontender. MUSCULOSKELETAL: Gait is normal. EXTREMITIES: No cyanosis or clubbing. Trace edema bilaterally lower extremity. PSYCHIATRIC: Alert and oriented. Mood and affect are appropriate. DIAGNOSTIC DATA: Chest x-ray on 10/24/2016, showed mild interstitial edema, left moderate pleural effusion, and right lower lobe atelectasis. Sodium 137, potassium 4.3, BUN 147, creatinine 2.2, glucose 245, magnesium 2.5. CK 34, MB 1.0, troponin 0.026 on second set. ProBNP 24,678. TSH 1.21. White blood cell count 5.6, hemoglobin 8.9, hematocrit to 29.7, and platelets 236. Hemoglobin A1c 7.1. ASSESSMENT AND PLAN: 1. Acute diastolic heart failure. 2. Paroxysmal atrial fibrillation. 3. Chronic kidney disease. 4. Diabetes mellitus. 5. Hypertension. Yamila is responding very nicely to the Lasix. I suspect that her atrial fibrillation is contributing to her symptoms of diastolic heart failure. I ADMIT: 10/23/2016 RM/LOC: 427 [facility] MR#: [id number] [address] [place] [id number] YAMILA ZHU [address] [place] [address] Consultation SEX: F AGE: 81 : 1935 recommend continue to diurese her at this point. I will plan direct cardioversion once she has been decongested with diuretics. I will increase her Lasix to twice daily and keep her n.p.o. after midnight with anticipation of cardioversion. She may have Valentin if needed. She has already been on Eliquis for over 30 days. Thank you for the consultation. "I have read and agree with the documentation that has been completed regarding this visit. By signing this record, I attest that the documentation was completed in my physical presence and is an accurate record of the encounter." Jenny Damico RN / Benitez Velez MD / wilmar JOB #: [id number] CC: Mihir Dumont, Attending Physician Mihir Dumont, Family Physician
--- NOTE | 2016-11-25 07:39 | DS ---
ADMIT: 10/23/2016 RM/LOC: [facility] MR#: [id number] [address] [facility] [address] [place], [place] [id number] YAMILA ZHU [address] [place] [address] General Discharge Summary SEX: F AGE: 81 : 1935 ADMISSION DATE: 10/23/2016 DISCHARGE DATE: 10/26/2016 INDICATION FOR HOSPITALIZATION: Yamila is an 81-year-old female, brought to the emergency room by her granddaughter with increasing shortness of breath. Her O2 saturation was noted to be 80%. O2 needs were identified and they were increased from 1.5 to 3 L in the ER. She had recently been converted from atrial fib to sinus rhythm by Cardiology. She was noted to be back in atrial fibrillation and chest x-ray revealed large pleural effusion, and she was admitted for further evaluation and management for CHF. HOSPITAL COURSE: On admission, Yamila was admitted to telemetry. Routine tele orders were given. Her home medications were reviewed. IV fluids, electrolytes, and diuretics were ordered. Accu-Chek monitoring and sliding scale were ordered. [facility] was consulted for diastolic CHF. Her Januvia was continued and IV Lasix was ordered. Cardiology continued with Lasix 40 mg IV b.i.d. Physical and Occupational Therapy were ordered. Incentive spirometry was additionally ordered. By the , amiodarone was initiated by Cardiology for management of her atrial fib. She was discharged later that day. DISCHARGE MEDICATIONS: Are listed. Please include a copy of her discharge med list at this time. Lasix and amiodarone doses were to be confirmed by [facility]. LABORATORY AND X-RAY DATA: Include October 26; hemoglobin 8.3. October 23; white count 5.2, hemoglobin 8.9, platelet count of 255,000. October 26; sodium 140, potassium 4.2, BUN of 42, creatinine 2.0, glucose 236. October 23; sodium 136, potassium 4.6, BUN of 45, creatinine 2.3 with glucose 315. AST of 24, ALT of 22. ProBNP on October 23 of 24,678. Sugars were monitored during the hospitalization. Hemoglobin A1c on October 24 was 7.1. October 24, urine was unremarkable. Chest x-ray on October 23 shows marked cardiomegaly and increased left pleural effusion. October 24, chest x-ray shows improved CHF. October 26, chest x-ray shows atelectasis or consolidation of right lung. Atrial fib, biphasic energy defibrillation was done in a synchronized fashion on October 23. She was cardioverted into sinus rhythm with anesthesia assist. FINAL DISCHARGE DIAGNOSES: 1. Atrial fibrillation. 2. Acute exacerbation of chronic diastolic heart failure. 3. Chronic kidney disease, stage 3 to 4. 4. Anemia of chronic disease. 5. Nonobstructive coronary artery disease. 6. Diabetes mellitus type 2. ADMIT: 10/23/2016 RM/LOC: [facility] MR#: [id number] [address] [place] [id number] YAMILA ZHU [address] [place] [address] General Discharge Summary SEX: F AGE: 81 : 1935 7. Benign essential hypertension. 8. Hyperlipidemia. 9. Hypothyroidism. 10.B12 deficiency. PROCEDURES: Include defibrillation, medical management of her CHF with diuresis, initiation of amiodarone therapy, medical management of her multiple medical problems outlined above. Please see her hospital record for further details regarding her history of present illness, past medical history, and other details at the time of discharge. Mihir Dumont MD/ wilmar JOB #: [id number] CC: Mihir Dumont MD, Attending Physician Mihir Dumont MD, Family Physician
== END 2016-10-26 15:06 | disposition home or self-care (01) | DRG 291 ==
LOC: ER 11:45 → 4PCU 13:36
PROVIDERS: ADMIT Family Medicine
PROC: 5A2204Z Restoration of Cardiac Rhythm, Single (ICD-10-PCS; principal; 2016-10-25)
DX: I13.0 Hypertensive heart and chronic kidney disease with heart failure and stage 1 through stage 4 chronic kidney disease, or unspecified chronic kidney disease (principal); I50.33 Acute on chronic diastolic (congestive) heart failure; N18.4 Chronic kidney disease, stage 4 (severe); E11.22 Type 2 diabetes mellitus with diabetic chronic kidney disease; I27.2 Other secondary pulmonary hypertension; J44.9 Chronic obstructive pulmonary disease, unspecified; J98.11 Atelectasis; I48.0 Paroxysmal atrial fibrillation; R09.02 Hypoxemia; D63.8 Anemia in other chronic diseases classified elsewhere; I25.10 Atherosclerotic heart disease of native coronary artery without angina pectoris; E78.5 Hyperlipidemia, unspecified; E03.9 Hypothyroidism, unspecified; E53.8 Deficiency of other specified B group vitamins; Z85.820 Personal history of malignant melanoma of skin; Z95.5 Presence of coronary angioplasty implant and graft; Z87.891 Personal history of nicotine dependence; Z79.01 Long term (current) use of anticoagulants; Z79.82 Long term (current) use of aspirin; Z79.84 Long term (current) use of oral hypoglycemic drugs; Z82.49 Family history of ischemic heart disease and other diseases of the circulatory system